=== PATIENT | female | born 1980 | race Two or more races ===

== ENCOUNTER 2018-02-20 05:51 | Emergency (ER) | payer OTHER ==
[~2018-02-20] VITALS: Ht 139.7 cm; Wt 104.3 kg
--- NOTE | 2018-02-20 05:51 | NUR ---
"DIARRHEA/ABD CRAMPING/VOMITING X1 WEEK" VSS NAD FAMILY AT BEDSIDE A/OX4. WILL CONTINUE TO MONITOR FOR ANY CHANGES DURING THE SHIFT.
--- NOTE | 2018-02-20 06:00 | NUR ---
ER MD VILLALBA AT BEDSIDE
--- NOTE | 2018-02-20 06:15 | NUR ---
BLOOD SENT TO LAB
[2018-02-20] MEDS ORDERED: IV NS 0.9% 1,000 ML IV ONE (06:30)
[2018-02-20] MEDS ORDERED: ONDANSETRON HCL/PF - ER 4 MG/2 ML VIAL IV ONE (06:30)
[2018-02-20 06:32] LABS: BASOPHILS % (AUTO) 0.5 % (0.0-2.0); EOSINOPHILS % (AUTO) 4.1 % (0.0-6.0); HEMATOCRIT 34 % (33-45); LYMPHOCYTES # (AUTO) 2.8 /CMM (0.8-4.8); LYMPHOCYTES % (AUTO) 33.3 % (20.0-44.0); MEAN CORPUSCULAR HGB CONC 33 g/dl (31.0-36.0); MEAN CORPUSCULAR VOLUME 73 fL (82-100); MONOCYTES # (AUTO) 0.7 /CMM (0.1-1.30); MONOCYTES % (AUTO) 8.6 % (2.0-12.0); NEUTROPHILS # (AUTO) 4.5 /CMM (1.8-8.9); NEUTROPHILS % (AUTO) 53.5 % (43.0-81.0); PLATELET COUNT (AUTO) 351 /CMM (150-450); RDW COEFFICIENT OF VARIATION 16.1 (11.5-15.0); RED BLOOD CELL COUNT(AUTO) 4.58 MIL/uL (4.0-5.2); WHITE BLOOD COUNT (AUTO) 8.4 K/uL (4.3-11.0)
[2018-02-20] MEDS ORDERED: ONDANSETRON HCL/PF 4 MG/2 ML VIAL ONE (06:40)
[2018-02-20 06:42] LABS: CALCIUM, SERUM 8.4 mg/dL (8.5-10.1); CREATININE 0.6 mg/dL (0.6-1.3)
[2018-02-20 06:48] LABS: ALBUMIN 3.2 g/dL (3.4-5.0); BILIRUBIN,TOTAL 0.2 mg/dL (0.2-1.0); TOTAL PROTEIN, SERUM 7.4 g/dL (6.4-8.2)
[2018-02-20 07:56] LABS: APPEARANCE,URINE CLEAR (CLEAR); BILIRUBIN,URINE NEGATIVE (NEGATIVE); BLOOD, URINE NEGATIVE Ery/uL (NEGATIVE); KETONES,URINE NEGATIVE (NEGATIVE); LEUKOCYTE ESTERASE ,URINE NEGATIVE (NEGATIVE); NITRITE, URINE NEGATIVE (NEGATIVE); PH,URINE 5.5 (5.0-8.0); PROTEIN,URINE NEGATIVE (NEGATIVE); UGLUCOSE NEGATIVE (NEGATIVE); UROBILINOGEN,URINE 0.2 EU/dL (0.2)
[2018-02-20 07:59] LABS: COLOR,URINE STRAW (YELLOW)
--- NOTE | 2018-02-20 08:46 | NUR ---
IV removed. Catheter intact and site benign. Pressure and 4x4 applied to site. No bleeding noted.
[2018-02-20 08:47] VITALS: BP 98/61
--- NOTE | 2018-02-20 08:47 | NUR ---
Patient discharged to home in stable condition. Written and verbal after care instructions given. Patient verbalizes understanding of instruction.
[2018-02-20 10:14] LABS: BAND % (MANUAL) 1 % (0.0-5.0); EOSINOPHILS % (MANUAL) 5 % (0-4); LYMPHOCYTES % (MANUAL) 29 % (16-48); MONOCYTES % (MANUAL) 6 % (0-11.0); NEUTROPHILS % (MANUAL) 59 (42-76)
== END 2018-02-20 08:47 | disposition home or self-care (01) ==
LOC: ER 05:53
DX: R19.7 Diarrhea, unspecified (principal); R11.2 Nausea with vomiting, unspecified
CPT/HCPCS: 36415; 80053-TC; 81000-TC; 84703-TC; 85025-TC; A4606; J2405; J7030; Z7610

== ENCOUNTER 2021-07-25 16:45 | Emergency (ER) | payer MEDICAID, OTHER ==
[~2021-07-25] VITALS: Ht 149.9 cm; Wt 69.9 kg
[2021-07-25 16:52] VITALS: BP 125/73
[2021-07-25] MEDS ORDERED: HYDROCODONE/APAP 5/325MG TABLET PO ONE (17:30)
[2021-07-25] MEDS ORDERED: HYDROCODONE/APAP 5/325MG TABLET ONE (17:42)
--- NOTE | 2021-07-25 17:51 | NUR ---
patient c/o pain in left ankle area, it appears swollen, red, inflammed, irritation to touch, pt stated she fell on the stairs and it felt like she twisted her ankle, she was able to ambulate into the facility limping on left foot in pain, given MD order of [place] 5-325 tablet PO will re-assess for pain and effectiveness, given water and warm blanket for comfort , ice pack applied to left ankle site, elevated left ankle with pillow and made comfortable. no SOB noted, no labored breathing and no other c/o pain in any other areas at this time.
[2021-07-25] MEDS ORDERED: TRAM50TA2 PO (17:58)
[2021-07-25] MEDS ORDERED: IBUP-1957 PO (17:58)
--- NOTE | 2021-07-25 19:35 | NUR ---
Patient discharged to home in stable condition. Written and verbal after care instructions given. Patient verbalizes understanding of instruction.
== END 2021-07-25 19:48 | disposition home or self-care (01) ==
LOC: ER 16:50
DX: S93.491A Sprain of other ligament of right ankle, initial encounter (principal); S39.012A Strain of muscle, fascia and tendon of lower back, initial encounter; W01.0XXA Fall on same level from slipping, tripping and stumbling without subsequent striking against object, initial encounter; Y93.89 Activity, other specified; Y92.89 Other specified places as the place of occurrence of the external cause; Y99.8 Other external cause status
CPT/HCPCS: 73610-TC

== ENCOUNTER 2021-12-21 18:04 | Emergency (ER) | payer MEDICAID ==
[~2021-12-21] VITALS: Ht 144.8 cm; Wt 64.4 kg
[~2021-12-21 18:04] MED LIST: IBUP-1957 PO; TRAM50TA2 PO
--- NOTE | 2021-12-21 18:04 | NUR ---
PT BIB DAUGHTER C/O R FLANK PAIN X 4 DAYS AND BROWNISH VAGINAL DISCHARGED. PT IS AAOX4, NOT IN RESPIRATORY DISTRESS, V/S STABLE, KEPT RESTED AND COMFORTABLE. WILL CONTINUE TO MONITOR.
--- NOTE | 2021-12-21 18:45 | NUR ---
IV LINE IS ESTABLISHED, BLOOD SPECIMEN COLLECTED AND SENT TO THE LAB. THE LINE IS SALINE LOCKED.
--- NOTE | 2021-12-21 18:54 | NUR ---
URINE COLLECTED AND SENT TO THE LAB
[2021-12-21] MEDS ORDERED: IV NS 0.9% 1,000 ML BAG IV ONE (19:00)
[2021-12-21] MEDS ORDERED: KETOROLAC TROMETHAMINE INJ 30 MG/ML VIAL IV ONE (19:00)
[2021-12-21] MEDS ORDERED: KETOROLAC TROMETHAMINE INJ 30 MG/ML VIAL ONE (19:06)
[2021-12-21 19:13] LABS: CALCIUM, SERUM 8.7 mg/dL (8.5-10.1); CREATININE 0.6 mg/dL (0.6-1.3); POTASSIUM 3.8 mmol/L (3.5-5.1)
--- NOTE | 2021-12-21 19:17 | NUR ---
REPORT GIVEN TO NURSE LAMB FOR WILI
[2021-12-21 19:22] LABS: BILIRUBIN,URINE NEGATIVE (NEGATIVE); COLOR,URINE YELLOW (YELLOW); LEUKOCYTE ESTERASE ,URINE NEGATIVE (NEGATIVE); NITRITE, URINE NEGATIVE (NEGATIVE); PROTEIN,URINE NEGATIVE (NEGATIVE); UGLUCOSE NEGATIVE (NEGATIVE); UROBILINOGEN,URINE 0.2 EU/dL (0.2)
[2021-12-21 19:23] LABS: ALBUMIN 3.3 g/dL (3.4-5.0); BILIRUBIN,DIRECT 0.1 mg/dL (0.0-0.2); BILIRUBIN,TOTAL 0.2 mg/dL (0.2-1.0); TOTAL PROTEIN, SERUM 6.9 g/dL (6.4-8.2)
--- NOTE | 2021-12-21 19:28 | NUR ---
PT TAKEN TO CT VIA [facility]
[2021-12-21 19:34] LABS: BACTERIA,URINE 1+ /HPF (None Seen); RBC,URINE 0-2 /HPF (0-2); SQUAMOUS EPITHELIAL CELL,UR Few /HPF (None Seen); URINE AMORPHOUS URATE Few /HPF (None Seen)
[2021-12-21 19:35] LABS: MUCUS,URINE Moderate /LPF (None Seen)
--- NOTE | 2021-12-21 19:40 | NUR ---
PT RETURNED TO ER BED [address] V[address] [facility]
[2021-12-21 20:02] LABS: BASOPHILS % (AUTO) 0.6 % (0.0-2.0); EOSINOPHILS % (AUTO) 2.8 % (0.0-6.0); HEMATOCRIT 37 % (33-45); HEMOGLOBIN 12.6 g/dL (11.5-14.8); LYMPHOCYTES # (AUTO) 3.2 K/uL (0.8-4.8); LYMPHOCYTES % (AUTO) 40.2 % (20.0-44.0); MEAN CORPUSCULAR HGB CONC 34 g/dl (31.0-36.0); MEAN CORPUSCULAR VOLUME 83 fL (82-100); MONOCYTES # (AUTO) 0.7 K/uL (0.1-1.30); MONOCYTES % (AUTO) 8.2 % (2.0-12.0); NEUTROPHILS # (AUTO) 3.9 K/uL (1.8-8.9); NEUTROPHILS % (AUTO) 48.2 % (43.0-81.0); PLATELET COUNT (AUTO) 283 K/uL (150-450); RED BLOOD CELL COUNT(AUTO) 4.48 MIL/uL (4.0-5.2); WHITE BLOOD COUNT (AUTO) 8.1 K/uL (4.3-11.0)
[2021-12-21] MEDS ORDERED: CIPR500T5 PO (20:12)
[2021-12-21] MEDS ORDERED: IBUP-1957 PO (20:12)
[2021-12-21] MEDS ORDERED: HYDROCODONE/APAP 5/325MG TABLET ONE (20:27)
[2021-12-21 20:30] VITALS: BP 118/68
[2021-12-21] MEDS ORDERED: HYDROCODONE/APAP 5/325MG TABLET PO ONE (20:30)
--- NOTE | 2021-12-21 20:30 | NUR ---
Patient discharged to home in stable condition. Written and verbal after care instructions given. Patient verbalizes understanding of instruction. IV line discontinued and 2x2 gauze applied to site.
== END 2021-12-21 20:31 | disposition home or self-care (01) ==
LOC: ER 18:05
DX: R10.31 Right lower quadrant pain (principal); R10.32 Left lower quadrant pain; N39.0 Urinary tract infection, site not specified; Z79.1 Long term (current) use of non-steroidal anti-inflammatories (NSAID); Z79.899 Other long term (current) drug therapy
CPT/HCPCS: 36415; 74176; 80048; 80076; 81001; 84703; 85025; 87086; 96361; 96374; 99284; J1885; J7030

== ENCOUNTER 2022-01-05 13:05 | Emergency (ER) | payer MEDICAID ==
[~2022-01-05] VITALS: Ht 144.8 cm; Wt 72.6 kg
[~2022-01-05 13:05] MED LIST changes: +CIPR500T5 PO
--- NOTE | 2022-01-05 14:08 | NUR ---
DR PARRA AT BEDSIDE FOR EVAL.
[2022-01-05] MEDS ORDERED: PROCHLORPERAZINE EDISYLATE 10 MG/2 ML VIAL ONE (14:20)
[2022-01-05] MEDS ORDERED: SUMATRIPTAN SUCCINATE 6 MG/0.5 ML VIAL SQ ONE ×2 (14:21→14:30)
[2022-01-05] MEDS ORDERED: IV NS 0.9% 1,000 ML BAG IV ONE (14:30)
[2022-01-05] MEDS ORDERED: PROCHLORPERAZINE EDISYLATE 10 MG/2 ML VIAL IVP ONE (14:30)
--- NOTE | 2022-01-05 14:30 | NUR ---
IV LINE STARTED BLOOD DRAWN AND SENT TO LAB.
--- NOTE | 2022-01-05 14:32 | NUR ---
PT TO RADIOLOGY FOR HEAD CT SCAN VIA [facility].
[2022-01-05 14:53] LABS: BASOPHILS % (AUTO) 0.5 % (0.0-2.0); HEMATOCRIT 37 % (33-45); LYMPHOCYTES # (AUTO) 2.9 K/uL (0.8-4.8); LYMPHOCYTES % (AUTO) 39.4 % (20.0-44.0); MEAN CORPUSCULAR HGB CONC 33 g/dl (31.0-36.0); MEAN CORPUSCULAR VOLUME 84 fL (82-100); MONOCYTES # (AUTO) 0.5 K/uL (0.1-1.30); MONOCYTES % (AUTO) 7.3 % (2.0-12.0); NEUTROPHILS # (AUTO) 3.7 K/uL (1.8-8.9); NEUTROPHILS % (AUTO) 50.8 % (43.0-81.0); PLATELET COUNT (AUTO) 324 K/uL (150-450); RED BLOOD CELL COUNT(AUTO) 4.36 MIL/uL (4.0-5.2); WHITE BLOOD COUNT (AUTO) 7.3 K/uL (4.3-11.0)
[2022-01-05 15:08] LABS: BILIRUBIN,URINE NEGATIVE (NEGATIVE); COLOR,URINE YELLOW (YELLOW); LEUKOCYTE ESTERASE ,URINE NEGATIVE (NEGATIVE); NITRITE, URINE NEGATIVE (NEGATIVE); PH,URINE 5.5 (5.0-8.0); PROTEIN,URINE NEGATIVE (NEGATIVE); UGLUCOSE NEGATIVE (NEGATIVE); UROBILINOGEN,URINE 0.2 EU/dL (0.2)
[2022-01-05 15:20] LABS: CALCIUM, SERUM 8.2 mg/dL (8.5-10.1); CARBON DIOXIDE 25 mmol/L (21-32); CHLORIDE 107 mmol/L (98-107); CREATININE 0.6 mg/dL (0.6-1.3); GLUCOSE 108 mg/dL (74-106); POTASSIUM 3.5 mmol/L (3.5-5.1); SODIUM SERUM 141 mmol/L (136-145); UREA NITROGEN, BLOOD 9 mg/dL (7-18)
[2022-01-05] MEDS ORDERED: MAGN400T8 PO (18:43)
--- NOTE | 2022-01-05 19:39 | NUR ---
Patient discharged to home in stable condition. Written and verbal after care instructions given. Patient verbalizes understanding of instruction.IV removed. Catheter intact and site benign. Pressure and 4x4 applied to site. No bleeding noted.
[2022-01-05 19:52] VITALS: BP 111/70
== END 2022-01-05 19:40 | disposition home or self-care (01) ==
LOC: ER 13:18
DX: G43.109 Migraine with aura, not intractable, without status migrainosus (principal); Z79.1 Long term (current) use of non-steroidal anti-inflammatories (NSAID); Z79.899 Other long term (current) drug therapy
CPT/HCPCS: 36415; 70450; 71045; 80048; 81003; 84484; 84703; 85025; 85652; 93005 ×2; 96361; 96372; 96374; 99285; J0780; J3030; J7030

== ENCOUNTER 2022-03-09 02:16 | Emergency (ER) | payer MEDICAID ==
[~2022-03-09] VITALS: Ht 147.3 cm; Wt 72.6 kg
[~2022-03-09 02:16] MED LIST changes: +MAGN400T8 PO
[2022-03-09 03:00] VITALS: BP 145/72
[2022-03-09] MEDS ORDERED: IV NS 0.9% 1,000 ML BAG IV ONE (03:00)
[2022-03-09] MEDS ORDERED: ONDANSETRON HCL/PF 4 MG/2 ML VIAL IVP ONE (03:00)
--- NOTE | 2022-03-09 03:00 | NUR ---
PATIENT BIBSELF C/O ABD PAIN FOR THE PAST FEW DAYS. PT IS A/O X 4, RR EVEN AN UNLABORED, NO SOB NOTED. PT TAKEN TO ER BED 09. PT CONNECTED TO MONITORS PLACED IN HOSPITAL [facility].
[2022-03-09] MEDS ORDERED: ONDANSETRON HCL/PF 4 MG/2 ML VIAL ONE (03:04)
--- NOTE | 2022-03-09 03:10 | NUR ---
URINE SENT TO LAB
[2022-03-09 03:34] LABS: BASOPHILS % (AUTO) 0.4 % (0.0-2.0); EOSINOPHILS % (AUTO) 1.7 % (0.0-6.0); HEMATOCRIT 36 % (33-45); HEMOGLOBIN 11.9 g/dL (11.5-14.8); LYMPHOCYTES # (AUTO) 1.8 K/uL (0.8-4.8); LYMPHOCYTES % (AUTO) 19.2 % (20.0-44.0); MEAN CORPUSCULAR HGB CONC 33 g/dl (31.0-36.0); MEAN CORPUSCULAR VOLUME 83 fL (82-100); MONOCYTES % (AUTO) 10.3 % (2.0-12.0); NEUTROPHILS # (AUTO) 6.5 K/uL (1.8-8.9); NEUTROPHILS % (AUTO) 68.4 % (43.0-81.0); PLATELET COUNT (AUTO) 298 K/uL (150-450); RED BLOOD CELL COUNT(AUTO) 4.31 MIL/uL (4.0-5.2); WHITE BLOOD COUNT (AUTO) 9.5 K/uL (4.3-11.0)
[2022-03-09 03:35] LABS: BILIRUBIN,URINE NEGATIVE (NEGATIVE); COLOR,URINE YELLOW (YELLOW); LEUKOCYTE ESTERASE ,URINE NEGATIVE (NEGATIVE); NITRITE, URINE NEGATIVE (NEGATIVE); PH,URINE 6.5 (5.0-8.0); PROTEIN,URINE NEGATIVE (NEGATIVE); UGLUCOSE NEGATIVE (NEGATIVE); UROBILINOGEN,URINE 0.2 EU/dL (0.2)
[2022-03-09 03:47] LABS: CALCIUM, SERUM 8.8 mg/dL (8.5-10.1); CREATININE 0.7 mg/dL (0.6-1.3)
[2022-03-09 04:04] LABS: ALBUMIN 3.1 g/dL (3.4-5.0); BILIRUBIN,DIRECT 0.1 mg/dL (0.0-0.2); BILIRUBIN,TOTAL 0.2 mg/dL (0.2-1.0); TOTAL PROTEIN, SERUM 6.9 g/dL (6.4-8.2)
[2022-03-09] MEDS ORDERED: MORPHINE SULFATE INJ 2 MG/ML DISP.SYRIN ONE (05:11)
--- NOTE | 2022-03-09 05:23 | NUR ---
US AT BEDSIDE
[2022-03-09] MEDS ORDERED: MORPHINE SULFATE INJ 2 MG/ML DISP.SYRIN IV ONE (05:30)
[2022-03-09] MEDS ORDERED: CIPR500T5 PO (05:32)
[2022-03-09] MEDS ORDERED: METR500T PO (05:32)
[2022-03-09] MEDS ORDERED: HYDR-4209 PO (05:32)
[2022-03-09] MEDS ORDERED: IBUP-1957 PO (05:52)
--- NOTE | 2022-03-09 05:54 | NUR ---
Patient discharged to home in stable condition. Written and verbal after care instructions given. Patient verbalizes understanding of instruction.
[2022-03-09 08:20] LABS: BACTERIA,URINE None seen /HPF (None Seen); SQUAMOUS EPITHELIAL CELL,UR Few /HPF (None Seen); WBC,URINE 0-2 /HPF (0-3)
[2022-03-10] MEDS ORDERED: IBUP-1955 PO (17:00)
== END 2022-03-09 06:43 | disposition home or self-care (01) ==
LOC: ER 02:24
DX: N83.201 Unspecified ovarian cyst, right side (principal); K57.32 Diverticulitis of large intestine without perforation or abscess without bleeding; Z88.8 Allergy status to other drugs, medicaments and biological substances; Z79.899 Other long term (current) drug therapy
CPT/HCPCS: 36415; 74176; 76856; 80048; 80076; 81001; 83690; 84703; 85025; 96361; 96374; 96375; 99284; J2270; J2405; J7030

== ENCOUNTER 2022-03-10 14:28 | Emergency (ER) | payer MEDICAID ==
[~2022-03-10] VITALS: Ht 152.4 cm; Wt 68.0 kg
[~2022-03-10 14:28] MED LIST changes: +HYDR-4209 PO; +METR500T PO
--- NOTE | 2022-03-10 14:50 | NUR ---
[id number] C/O ABDOMINAL PAIN AND CONSTIPATION X5DAYS. VITALS ARE WITHIN NORMAL LIMITS. AWAITING MD JOHNSON.
[2022-03-10 15:57] LABS: BASOPHILS % (AUTO) 0.4 % (0.0-2.0); EOSINOPHILS % (AUTO) 0.8 % (0.0-6.0); HEMATOCRIT 37 % (33-45); LYMPHOCYTES # (AUTO) 1.4 K/uL (0.8-4.8); LYMPHOCYTES % (AUTO) 15.8 % (20.0-44.0); MEAN CORPUSCULAR HGB CONC 33 g/dl (31.0-36.0); MEAN CORPUSCULAR VOLUME 85 fL (82-100); MONOCYTES # (AUTO) 0.6 K/uL (0.1-1.30); MONOCYTES % (AUTO) 6.4 % (2.0-12.0); NEUTROPHILS # (AUTO) 6.9 K/uL (1.8-8.9); NEUTROPHILS % (AUTO) 76.6 % (43.0-81.0); PLATELET COUNT (AUTO) 291 K/uL (150-450); RED BLOOD CELL COUNT(AUTO) 4.31 MIL/uL (4.0-5.2)
[2022-03-10 16:36] LABS: CALCIUM, SERUM 8.5 mg/dL (8.5-10.1); CREATININE 0.6 mg/dL (0.6-1.3); POTASSIUM 3.9 mmol/L (3.5-5.1)
[2022-03-10 16:43] LABS: ALBUMIN 3.1 g/dL (3.4-5.0); BILIRUBIN,TOTAL 0.3 mg/dL (0.2-1.0)
[2022-03-10] MEDS ORDERED: IBUP-1955 PO (17:00)
[2022-03-10] MEDS ORDERED: KETOROLAC TROMETHAMINE INJ 30 MG/ML VIAL ONE (17:21)
[2022-03-10] MEDS: KETOROLAC TROMETHAMINE INJ 30 MG/ML VIAL IV ONE (17:21)
[2022-03-10 17:29] VITALS: BP 122/67
== END 2022-03-10 17:29 | disposition home or self-care (01) ==
LOC: ER 14:34
DX: R10.84 Generalized abdominal pain (principal); N83.201 Unspecified ovarian cyst, right side; N93.9 Abnormal uterine and vaginal bleeding, unspecified; K59.00 Constipation, unspecified; Z88.8 Allergy status to other drugs, medicaments and biological substances; Z79.899 Other long term (current) drug therapy
CPT/HCPCS: 36415; 76856; 80053; 85025; 96372; 99284; J1885

== ENCOUNTER 2022-11-23 12:14 | Emergency (ER) | payer MEDICAID ==
[~2022-11-23] VITALS: Ht 134.6 cm; Wt 61.2 kg
[~2022-11-23 12:14] MED LIST changes: +IBUP-1955 PO
--- NOTE | 2022-11-23 12:15 | NUR ---
Called NO response
[2022-11-23 12:29] VITALS: BP 114/67
--- NOTE | 2022-11-23 12:29 | NUR ---
BIBS C/O BODY PAIN AND ACHES X3 DAYS STATED THAT SHE HAD A FEVER AND DIARRHEA LAST NIGHT. AWAITING MD ORDERS.
--- NOTE | 2022-11-23 12:38 | NUR ---
URINE COLLECTED AND SENT
--- NOTE | 2022-11-23 12:41 | NUR ---
COVID AND FLU COLLECTED AND SENT
[2022-11-23 13:16] LABS: BILIRUBIN,URINE NEGATIVE (NEGATIVE); COLOR,URINE YELLOW (YELLOW); LEUKOCYTE ESTERASE ,URINE NEGATIVE (NEGATIVE); NITRITE, URINE NEGATIVE (NEGATIVE); PROTEIN,URINE NEGATIVE (NEGATIVE); UGLUCOSE NEGATIVE (NEGATIVE); UROBILINOGEN,URINE 0.2 EU/dL (0.2)
[2022-11-23 13:59] LABS: BASOPHILS % (AUTO) 0.3 % (0.0-2.0); EOSINOPHILS % (AUTO) 2.4 % (0.0-6.0); HEMATOCRIT 39 % (33-45); HEMOGLOBIN 13.3 g/dL (11.5-14.8); LYMPHOCYTES # (AUTO) 1.2 K/uL (0.8-4.8); LYMPHOCYTES % (AUTO) 16.7 % (20.0-44.0); MEAN CORPUSCULAR HGB CONC 34 g/dl (31.0-36.0); MEAN CORPUSCULAR VOLUME 86 fL (82-100); MONOCYTES # (AUTO) 0.6 K/uL (0.1-1.30); MONOCYTES % (AUTO) 7.8 % (2.0-12.0); NEUTROPHILS # (AUTO) 5.2 K/uL (1.8-8.9); NEUTROPHILS % (AUTO) 72.8 % (43.0-81.0); PLATELET COUNT (AUTO) 286 K/uL (150-450); RED BLOOD CELL COUNT(AUTO) 4.58 MIL/uL (4.0-5.2); WHITE BLOOD COUNT (AUTO) 7.1 K/uL (4.3-11.0)
[2022-11-23 14:14] LABS: ALBUMIN 3.5 g/dL (3.4-5.0); BILIRUBIN,TOTAL 0.4 mg/dL (0.2-1.0); CALCIUM, SERUM 8.8 mg/dL (8.5-10.1); CREATININE 0.7 mg/dL (0.6-1.3); POTASSIUM 3.4 mmol/L (3.5-5.1); TOTAL PROTEIN, SERUM 7.6 g/dL (6.4-8.2)
[2022-11-23] MEDS ORDERED: IBUP-1955 PO (14:35)
[2022-11-23] MEDS ORDERED: IBUPROFEN 600 MG TABLET ONE (14:40)
[2022-11-23] MEDS ORDERED: IBUPROFEN 600 MG TABLET PO ONE (15:00)
== END 2022-11-23 14:45 | disposition home or self-care (01) ==
LOC: ER 12:32
DX: R10.31 Right lower quadrant pain (principal); M79.10 Myalgia, unspecified site; Z20.822 Contact with and (suspected) exposure to COVID-19; Z88.0 Allergy status to penicillin; Z88.8 Allergy status to other drugs, medicaments and biological substances; Z79.899 Other long term (current) drug therapy
CPT/HCPCS: 99284; 74176; 87426; 87804 ×2; 85025; 83690; 84703; 81003; 36415; 80053; C9803

== ENCOUNTER 2024-05-08 12:39 | Emergency (ER) | payer MEDICAID ==
[~2024-05-08] VITALS: Ht 142.2 cm; Wt 71.7 kg
[2024-05-08 13:29] VITALS: TEMP 98.2
[2024-05-08] MEDS: IV NS 0.9% 1,000 ML BAG IV ONE (13:55)
[2024-05-08 14:02] LABS: BASOPHILS # (AUTO) 0.1 K/uL (0.0-0.2); BASOPHILS % (AUTO) 0.8 % (0.0-2.0); EOSINOPHILS % (AUTO) 0.5 % (0.0-6.0); HEMATOCRIT 41 % (33-45); HEMOGLOBIN 13.8 g/dL (11.5-14.8); LYMPHOCYTES # (AUTO) 2.6 K/uL (0.8-4.8); LYMPHOCYTES % (AUTO) 37.6 % (20.0-44.0); MEAN CORPUSCULAR HEMOGLOBIN 29 PG (26.0-33.0); MEAN CORPUSCULAR HGB CONC 34 g/dl (31.0-36.0); MEAN CORPUSCULAR VOLUME 86 fL (82-100); MONOCYTES # (AUTO) 0.4 K/uL (0.1-1.30); MONOCYTES % (AUTO) 6.3 % (2.0-12.0); NEUTROPHILS # (AUTO) 3.8 K/uL (1.8-8.9); NEUTROPHILS % (AUTO) 54.8 % (43.0-81.0); PLATELET COUNT (AUTO) 312 K/uL (150-450); RED BLOOD CELL COUNT(AUTO) 4.73 MIL/uL (4.0-5.2); WHITE BLOOD COUNT (AUTO) 6.9 K/uL (4.3-11.0)
[2024-05-08] MEDS ORDERED: ACETAMINOPHEN ES 500 MG TABLET ONE (14:04)
[2024-05-08] MEDS: ACETAMINOPHEN ES 500 MG TABLET PO ONE (14:08)
[2024-05-08 14:11] LABS: CALCIUM, SERUM 8.4 mg/dL (8.5-10.1); CARBON DIOXIDE 27 mmol/L (21-32); CHLORIDE 102 mmol/L (98-107); CREATININE 0.9 mg/dL (0.6-1.3); GLUCOSE 121 mg/dL (74-106); POTASSIUM 3.6 mmol/L (3.5-5.1); SODIUM SERUM 135 mmol/L (136-145); UREA NITROGEN, BLOOD 14 mg/dL (7-18)
[2024-05-08] MEDS ORDERED: BENZ-13 PO (15:23)
[2024-05-08] MEDS ORDERED: IBUP-1955 PO (15:23)
[2024-05-08 16:01] VITALS: BP 135/75; O2SAT 99
== END 2024-05-08 16:00 | disposition home or self-care (01) ==
LOC: ER 13:01
DX: J06.9 Acute upper respiratory infection, unspecified (principal); R05.9 Cough, unspecified; R09.81 Nasal congestion; R07.89 Other chest pain; R50.9 Fever, unspecified; R51.9 Headache, unspecified; M79.10 Myalgia, unspecified site; R53.83 Other fatigue; R55 Syncope and collapse; R06.02 Shortness of breath; Z88.0 Allergy status to penicillin; Z91.014 Allergy to mammalian meats; Z91.018 Allergy to other foods; Z88.8 Allergy status to other drugs, medicaments and biological substances; Z20.822 Contact with and (suspected) exposure to COVID-19
CPT/HCPCS: 99285; 96360; 71045; 87426; 93005; 87804 ×2; 85025; 80048; 36415; 84484; J7030

== ENCOUNTER 2025-08-05 23:10 | Emergency (ER) | payer MEDICAID ==
[~2025-08-05] VITALS: Ht 144.8 cm; Wt 86.2 kg
[~2025-08-05 23:10] MED LIST changes: +BENZ-13 PO
[2025-08-06 01:38] VITALS: TEMP 98.1
[2025-08-06 02:01] VITALS: BP 117/68; O2SAT 96
[2025-08-06] MEDS ORDERED: ACETAMINOPHEN 325 MG TABLET ONE (02:06)
[2025-08-06] MEDS ORDERED: ACETAMINOPHEN 325 MG TABLET PO ONE (02:30)
== END 2025-08-06 02:08 | disposition home or self-care (01) ==
LOC: ER 23:15
DX: M54.12 Radiculopathy, cervical region (principal); M62.838 Other muscle spasm; Z71.82 Exercise counseling; Z79.1 Long term (current) use of non-steroidal anti-inflammatories (NSAID); Z88.0 Allergy status to penicillin; Z88.1 Allergy status to other antibiotic agents; Z91.018 Allergy to other foods